=== PATIENT | male | born 1975 ===

== ENCOUNTER 2019-06-17 05:16 | Day surgery (SDC) | payer OTHER ==
[~2019-06-17 05:16] MED LIST: AVAIR; COZAAR100 MG PO; SINGULAIR10 MG PO; ZOCOR PO
[2019-06-17] MEDS ORDERED: PROTONIX40 M1 PO (11:41)
[2019-06-17] MEDS ORDERED: KEFLEX500 MG PO (11:41)
[2019-06-17] MEDS ORDERED: ULTRACET PO (11:41)
== END 2019-06-17 13:10 | disposition home or self-care (01) ==
LOC: CIR.AMB 05:16 → EDSTATUS 09:15 → SURH 09:15 → ADM 09:15 → CIR.AMB 09:15
DX: K80.10 Calculus of gallbladder with chronic cholecystitis without obstruction (principal)